=== PATIENT | male | born 1950 | race Caucasian/White ===

== ENCOUNTER 2020-09-21 20:48 | Emergency (ER) | payer OTHER, MEDICARE ==
--- NOTE | 2020-09-21 20:51 | ER Document Report ---
ED General - General Chief Complaint: S/S of Possible Stroke Stated Complaint: S/S STROKE Time Seen by Provider: 09/21/20 20:51 Primary Care Provider: Librado HEARD MD [ACTIVE STAFF] - Follow up as needed - HPI Notes: 69-year-old male presents via EMS from home with concerns for having a stroke. Patient has a detailed handwritten list of when his symptoms started. At 11:30 AM the patient began to feel left leg numbness. This has been persistent throughout the day. At 6:51 PM the numbness started to involve the entire left side of his body. He states that he feels numbness in his head, face, arm, back, and leg. He states that his symptoms were persistent so at 7:54 PM he decided to call EMS. Patient reports multiple previous strokes in the past. He states that he has left leg and arm deficits from previous strokes, states that he has lost 25 to 30% functioning in each of these extremities. He is really unable to give a clear answer as to when his last definitive stroke was, though he does states he has received tPA multiple times in the past and would not like to receive it again. Patient also states he is having some nausea and a severe headache, he has a history of severe migraines and this does feel similar. Patient states that he also has chronic back pain, disc issues at almost all levels in his back, stating that he has about 5 functional disc left, he also has chronic burning in his feet. He is on chronic opioid medications and does reference that he will have diarrhea if he does not take morphine as prescribed. He also states he has multiple allergies and has had multiple procedures done. He has been recently admitted multiple times this year for anginal episodes, last admission was 09/18 at the [facility]. He currently denies chest pain. - Related Data Allergies/Adverse Reactions: EDUARDO Inhibitors Allergy (Verified 09/21/20 23:42) adhesive tape Allergy (Verified 09/21/20 23:54) albiglutide [From Tanzeum] Allergy (Verified 09/21/20 23:53) amitriptyline Allergy (Verified 09/21/20 23:45) atorvastatin [From Lipitor] Allergy (Verified 09/21/20 23:48) barium iodide Allergy (Verified 09/21/20 23:46) barium sulfate Allergy (Verified 09/21/20 23:46) diazepam [From Valium] Allergy (Verified 09/21/20 23:53) exenatide [From Bydureon] Allergy (Verified 09/21/20 23:52) ezetimibe [From Vytorin] Allergy (Verified 09/21/20 23:54) fenofibrate Allergy (Verified 09/21/20 23:47) fentanyl Allergy (Verified 09/21/20 23:43) Iodine and Iodide Containing Produc Allergy (Verified 09/21/20 23:46) lansoprazole Allergy (Verified 09/21/20 23:48) latex Allergy (Verified 09/21/20 23:48) lisinopril Allergy (Verified 09/21/20 23:49) metformin Allergy (Verified 09/21/20 23:49) NSAIDS (Non-Steroidal Anti-Inflamma Allergy (Verified 09/21/20 23:50) opium tincture Allergy (Verified 09/21/20 23:50) ranitidine [From Zantac] Allergy (Verified 09/21/20 23:54) saccharin Allergy (Verified 09/21/20 23:51) simvastatin [From Vytorin] Allergy (Verified 09/21/20 23:54) solifenacin [From Vesicare] Allergy (Verified 09/21/20 23:53) Sulfa (Sulfonamide Antibiotics) Allergy (Verified 09/21/20 23:51) sulfamethoxazole [From Septra] Allergy (Verified 09/21/20 23:51) trimethoprim [From Septra] Allergy (Verified 09/21/20 23:51) alcohol Prep Pads Allergy (Uncoded 09/21/20 23:44) Past Medical History - General Information source: Patient - Social History Smoking Status: Unknown if Ever Smoked Family History: Reviewed & Not Pertinent Review of Systems - Review of Systems Constitutional: denies: Fever EENT: Double vision Cardiovascular: denies: Chest pain Respiratory: denies: Short of breath Gastrointestinal: Nausea. denies: Abdominal pain, Vomiting Genitourinary: No symptoms reported Male Genitourinary: No symptoms reported Musculoskeletal: Back pain Skin: No symptoms reported Hematologic/Lymphatic: No symptoms reported Neurological/Psychological: See HPI Physical Exam - Vital signs Vitals: Temp Pulse Resp BP Pulse Ox 98.1 F 70 28 H 151/99 H 97 09/21/20 21:00 09/21/20 21:00 09/21/20 21:00 09/21/20 21:00 09/21/20 21:00 - General General appearance: Appears well, Alert In distress: None - HEENT Head: Normocephalic, Atraumatic Extraocular movements intact: Yes Pupils: PERRL Mucous membranes: Moist Neck: Supple - Respiratory Breath sounds: Normal - Cardiovascular Rhythm: Regular Heart sounds: Normal auscultation Normal capillary refill: Yes - Abdominal Inspection: Obese Tenderness: Nontender - Extremities General lower extremity: No: Edema - Neurological Cognition: Normal Orientation: AAOx4 Notes: Face is symmetric and speech is clear. There is no facial droop. There is no dysarthria. Tongue protrudes midline. Shoulder shrug is symmetric. EOMI. Vision is grossly intact. Cranial nerves II through XII are grossly intact. [employer] strength is symmetric between both extremities, he is able to push me away with preserved strength, sensation is grossly intact, no drift. Patient has symmetric strength with plantar flexion of the lower extremities. He is able to lift the right leg off the bed. He is unable to fully lift the left leg off the bed. Sensation is intact to the left leg though he reports it is subjectively decreased compared to the right. - Psychological Associated symptoms: Normal affect - Skin Skin Temperature: Warm Course - Re-evaluation Re-evalutation: 69-year-old male arrives as a code stroke from home via EMS. Patient developed left leg numbness at 11:30 AM. At 6:51 PM the numbness then spread to the entire left side of his body. He has had multiple strokes in the past with known left-sided deficits. On initial neuro exam, face is symmetric and speech is clear, no upper extremity deficits, he does have some mild weakness to the left leg which is apparently his a known deficit. He will go to CT to have CT head along with CTA head/neck. I do have a low suspicion for LVO at this time given his overall preserved exam. He would be excluded from tPA given the initial onset of symptoms was greater than 4 hours ago. 09/21/20 21:00 CTA head and neck had been ordered, however patient apparently reporting he cannot have iodine because it causes shortness of breath. Have ordered MRI instead. 09/21/20 21:34 Patient is back from CT. Went into again reexamine him. Face is symmetric and speech is clear, EOMI, shoulder shrug symmetric. Cranial nerves II through XII grossly intact. Symmetric automatic chief strengths between hands. Has good strength with toe touch basically, there is some left-sided mild discrepancy as he is unable to fully lift his leg off the bed, which he does report is usual but somewhat worse than his baseline. He again states that he is having numbness to the entire left side of his body, he states he is having a headache and has a history of pretty severe migraines, he is open to trialing Compazine for symptomatic control, presentation today could be pharmacy services representative of migraine given the involvement of the entire side of the body. I discussed with him not given that his initial onset of symptoms was at 11:30 AM, he is unfortunately outside of the tPA window. There is also some debate over whether patient can have an MRI. Patient states that he has had multiple MRIs in the past, however if he goes into a "closed" machine he will have "seizures". He states that he g oes into an open machine that he will not have a seizure. 09/21/20 21:[address] is negative for bleed or acute process 09/21/20 22:13 Per radiology, patient was deemed not able to have MRI performed given his issues with closed MRI and he reported a small piece of shrapnel in his jaw 09/22/20 00:17 Patient states that all of his symptoms have totally resolved. He has now regained sensation to the left side of his body. He freely moves all extremities, he is able to sit up in bed and turn to get off stretcher without any assistance. He feels comfortable going home. Return precautions discussed, stable time of discharge. - Vital Signs Vital signs: Temp Pulse Resp BP Pulse Ox 98.1 F 70 22 H 123/83 96 09/21/20 21:00 09/21/20 21:00 09/22/20 00:01 09/22/20 00:01 09/22/20 00:01 - Laboratory Result Diagrams: 09/21/20 21:05 09/21/20 21:05 Laboratory results interpreted by me: 09/21/20 09/21/20 09/21/20 21:05 21:05 21:14 RDW 14.9 H Plt Count 148 L Glucose 113 H POC Glucose 111 H - Diagnostic Test Radiology reviewed: Image reviewed, Reports reviewed - EKG Interpretation by Me Additional EKG results interpreted by me: EKG is interpreted by me. Sinus rhythm, rate 64. Narrow QRS, QTC within normal limits. No ST segment elevation or depression. Discharge - Discharge Clinical Impression: Numbness Disposition: HOME, SELF-CARE Additional Instructions: Please continue all of your medications as prescribed. Please have close follow-up with your primary care doctor. Return to the emergency department for any concerning worsening symptoms. Referrals: Librado HEARD MD [ACTIVE STAFF] - Follow up as needed
[2020-09-21 21:14] LABS: ABSOLUTE BASOPHILS # (AUTO) 0.1 10^3/uL (0.0-0.2); ABSOLUTE EOSINOPHILS # (AUTO) 0.1 10^3/uL (0.0-0.6); ABSOLUTE LYMPHOCYTES (AUTO) 1.9 10^3/uL (0.5-4.7); ABSOLUTE MONOCYTES (AUTO) 0.7 10^3/uL (0.1-1.4); ABSOLUTE NEUT (AUTO) 3.6 10^3/uL (1.7-8.2); HEMATOCRIT 40.8 % (37.9-51.0); LYMPHOCYTES % (AUTO) 29.9 % (13-45); MEAN CORPUSCULAR HGB CONC 34.3 g/dL (32.0-36.0); MEAN CORPUSCULAR VOLUME 87 fl (80-97); MONOCYTES % (AUTO) 11.6 % (3-13); PLATELET COUNT 148 10^3/uL (150-450); RED BLOOD COUNT 4.68 10^6/uL (4.35-5.55); RED CELL DISTRIBUTION WIDTH 14.9 % (11.5-14.0); SEGMENTED NEUTROPHILS % (AUTO) 55.5 % (42-78); TOTAL CELLS COUNTED % (AUTO) 100 %; WHITE BLOOD COUNT 6.5 10^3/uL (4.0-10.5)
--- NOTE | 2020-09-21 21:18 | RADIOLOGY REPORT (SQ) ---
EXAM DESCRIPTION: CT HEAD WITHOUT IV CONTRAST COMPLETED DATE/TME: 09/21/2020 21:01 CLINICAL HISTORY: 69 years, Male, code stroke, L numbness COMPARISON: None. TECHNIQUE: Axial images without contrast. Sagittal coronal reconstruction. Images stored on PACS. All CT scanners at this facility use dose modulation, iterative reconstruction, and/or weight based dosing when appropriate to reduce radiation dose to as low as reasonably achievable (ALARA). FINDINGS: Uook-oo-akfxzeuy ventriculomegaly and cortical atrophy. Incidental relatively large normal variant midline cavum septa pellucida. No suspicious acute intra-axial or extra-axial abnormalities. Borderline enlarged for age. Pituitary gland with minimal superior convexity. Paranasal sinuses, mastoid air cells and bony calvarium without acute findings. IMPRESSION: 1. Mild to moderate atrophy. No acute intracranial findings. Congenital variant cavum septum pellucidum. 2. Borderline enlarged pituitary gland. Theoretically, a microadenoma cannot be excluded. TECHNICAL DOCUMENTATION: Quality ID # [id number]: Final reports with documentation of one or more dose reduction techniques (e.g., Automated exposure control, adjustment of the mA and/or kV according to patient size, use of iterative reconstruction technique) copyright 2011 [employer]- All Rights Reserved
[2020-09-21 21:23] LABS: INTERNATIONAL RATION (INR) 1.02; PROTHROMBIN TIME 13.6 SEC (11.4-15.4)
[2020-09-21 21:24] LABS: PARTIAL THROMBOPLASTIN TIME 32.1 SEC (23.5-35.8)
[2020-09-21] MEDS ORDERED: PROCHLORPERAZINE EDISYLATE INJ 10 MG/2 ML VIAL IV ONE (21:33)
[2020-09-21 21:47] LABS: ANION GAP 6 (5-19); BLOOD UREA NITROGEN 17 mg/dL (7-20); CALCIUM 9.7 mg/dL (8.4-10.2); CARBON DIOXIDE 28 mmol/L (22-30); CHLORIDE 103 mmol/L (98-107); GLUCOSE 113 mg/dL (75-110); POTASSIUM 3.9 mmol/L (3.6-5.0)
--- NOTE | 2020-09-21 21:54 | RADIOLOGY REPORT (SQ) ---
CHEST X-RAY 1 VIEW on 09/21/2020 at 8:59 PM CLINICAL INDICATION: Code stroke, left-sided numbness COMPARISON: 02/03/2015 FINDINGS: Device is noted projecting over the left upper chest. There is elevation of the right hemidiaphragm. The lungs are clear. Cardiac, hilar and mediastinal contours are within normal limits. Pulmonary vascularity is within normal limits. IMPRESSION: No acute disease.
[2020-09-22 01:07] VITALS: BP 138/86
--- NOTE | 2020-09-25 16:31 | EKG REPORT ---
SEVERITY:- ABNORMAL ECG - SINUS RHYTHM PROBABLE POSTERIOR INFARCT : Confirmed by: Lexus Millan 25-Sep-2020 16:31:03
== END 2020-09-22 01:07 | disposition home or self-care (01) ==
LOC: ER 20:48
DX: R20.0 Anesthesia of skin (principal); R11.0 Nausea; R51.9 Headache, unspecified; H53.2 Diplopia; M54.9 Dorsalgia, unspecified; G89.29 Other chronic pain; I69.344 Monoplegia of lower limb following cerebral infarction affecting left non-dominant side; Z86.69 Personal history of other diseases of the nervous system and sense organs; Z79.891 Long term (current) use of opiate analgesic; Z88.8 Allergy status to other drugs, medicaments and biological substances; Z91.048 Other nonmedicinal substance allergy status; Z88.2 Allergy status to sulfonamides; Z88.1 Allergy status to other antibiotic agents; Z91.040 Latex allergy status; Z88.6 Allergy status to analgesic agent; Z88.5 Allergy status to narcotic agent; Z91.041 Radiographic dye allergy status
CPT/HCPCS: 99285; 96374; 36415; 82962; 85025; 85610; 85730; 80048; 71045; 70450; J0780; 93005; 93010